=== PATIENT | female | born 1990 | race Caucasian/White ===

== ENCOUNTER 2020-07-30 08:34 | Outpatient (REF) | payer OTHER, SELFPAY ==
[2020-07-30 10:00] LABS: Free T4 (Free Thyroxine) 1.16 ng/dL (0.71-1.85); Thyroid Stimulating Hormone 3.33 mIU/mL (0.32-4.0)
[2020-07-31 10:32] LABS: Follicle Stimulating Hormone 0.7 mIU/mL; Lutenizing Hormone 0.9 mIU/mL
[2020-08-01 03:57] LABS: Folate 12.9 ng/mL (> or = 4.0); Vitamin B12 435 pg/mL (200-900)
[2020-08-02 21:21] LABS: Anti-Mullerian Hormone-Female 5.39 ng/mL (0.69-13.39)
== END 2020-07-30 08:35 | disposition home or self-care (01) ==
LOC: HO.LAB 08:34
PROVIDERS: Visit Provider Internal Medicine Medical Oncology
DX: Z13.29 Encounter for screening for other suspected endocrine disorder (principal); Z13.89 Encounter for screening for other disorder
CPT/HCPCS: 82397; 82607; 82746; 83001; 83002; 84146; 84439; 84443

== ENCOUNTER 2021-08-25 13:38 | Outpatient (REF) | payer OTHER, SELFPAY ==
[2021-08-25 15:01] LABS: T4 Thyroxine 8.6 ug/dL (4.5-12.0); Thyroid Stimulating Hormone 0.76 uIU/mL (0.32-4.0)
[2021-08-26 05:05] LABS: Follicle Stimulating Hormone 6.6 mIU/mL; Lutenizing Hormone 2.8 mIU/mL; Prolactin 4.9 ng/mL
[2021-08-26 05:20] LABS: Rubella IgG Antibody 4.45 Index
== END 2021-08-25 13:39 | disposition home or self-care (01) ==
LOC: HO.LAB 13:38
PROVIDERS: Visit Provider Internal Medicine Medical Oncology
DX: N97.9 Female infertility, unspecified (principal); R63.4 Abnormal weight loss
CPT/HCPCS: 36415; 83001; 83002; 84146; 84436; 84443; 86762